=== PATIENT | male | born 1965 | race Caucasian/White ===

== ENCOUNTER 2019-06-10 12:21 | Outpatient (CLI) | payer BC, SELFPAY ==
--- NOTE | ~2019-06-10 | CT_ITS ---
EXAMINATION: CT abdomen pelvis wo con EXAM DATE: 06/10/2019 12:59 INDICATION: Hematuria, dysuria. TECHNIQUE: Spiral CT of the abdomen and pelvis was performed without contrast. Axial, coronal and sag ittal images were reviewed. The dose-length product (DLP) for this examination was 280.47 mGy-cm. T he exposure was tailored according to patient size (auto mA exposure control), and iterative reconstr uction (ASIR) was used as additional dose reduction technique. Comparison is made to prior examinatio n from 09/03/2016. FINDINGS: There is punctate left inferior calyceal stone. There is a left renal cyst measuring 2 cm. No obstructing ureteral stones or hydronephrosis. The prostate is poorly visualized from bilateral hi p replacements. Bladder also poorly visualized. The liver, spleen, adrenal glands and pancreas are unremarkable. Gallbladder is unremarkable. No biliary obstruction. There is no retroperitoneal or pelvic lymphadenopathy. Probable identification of a normal appendix. No pericecal inflammation. The stomach and small kamila l are unremarkable. There is expected amount of colonic stool. No free intraperitoneal gas. The heart is normal in size. There are no pericardial or pleural effusions. The lung bases are unremark able. There are no osteoblastic or osteolytic lesions identified. IMPRESSION: 1. Punctate left nephrolithiasis. 2. No acute findings but prostate and bladder are poorly visualized from artifact due to bilateral h ip replacements. Reviewed, dictated and finalized at location B. IMPRESSION: 1. Punctate left nephrolithiasis. 2. No acute findings but prostate and bladder are poorly visualized from artif act due to bilateral hip replacements.
== END 2019-06-10 12:22 | disposition home or self-care (01) ==
LOC: ANHIMG 12:25
PROVIDERS: PCP Family Medicine; Visit Provider Physician Assistant
DX: R31.9 Hematuria, unspecified (principal); R30.0 Dysuria; N20.0 Calculus of kidney
CPT/HCPCS: 74176